=== PATIENT | female | born 1980 | race Caucasian/White ===

== ENCOUNTER 2018-02-15 05:46 | Day surgery (SDC) | payer OTHER ==
[2018-02-15] MEDS ORDERED: LR 1,000 ML IV ONE (06:54)
[2018-02-15] MEDS ORDERED: MIDAZOLAM 2 MG/2 ML VIAL IVP ONE (07:11)
--- NOTE | 2018-02-15 07:12 | PDANEPAE ---
ANE Past Medical History - Cardiovascular History Hx Hypertension: No Hx Arrhythmias: No Hx Chest Pain: No Hx Coronary Artery / Peripheral Vascular Disease: No Hx CHF / Valvular Disease: No Hx Palpitations: No - Pulmonary History Hx COPD: No Hx Asthma/Reactive Airway Disease: No Hx Recent Upper Respiratory Infection: No Hx Oxygen in Use at Home: No Hx Sleep Apnea: No Sleep Apnea Screening Result - Last Documented: Negative - Neurologic History Hx Cerebrovascular Accident: No Hx Seizures: No Hx Dementia: No - Endocrine History Hx Diabetes: No Obesity: no - Renal History Hx Renal Disorders: No - Liver History Hx Hepatic Disorders: No - Neurological & Psychiatric Hx Hx Neurological and Psychiatric Disorders: No - Cancer History Hx Cancer: No - Congenital Disorder History Hx Congenital Disorders: No - GI History Hx Gastrointestinal Disorders: No - Other Health History Other Health History: rash ? dairy. anemia. abnormal bleeding fibroids - Chronic Pain History Chronic Pain: No - Surgical History Prior Surgeries: none ANE Review of Systems Review of Systems: - Exercise capacity METS (RN): 5 METS ANE Patient History - Allergies Allergies/Adverse Reactions: No Known Allergies Allergy (Verified 02/15/18 06:38) - Home Medications Home medications: home medication list seen and reviewed Home Medications: Ascorbic Acid 02/02/18 [Last Taken 02/08/18] Cholecalciferol (Vitamin D3) 02/02/18 [Last Taken 02/08/18] Herbals/Supplements -Info Only 02/02/18 [Last Taken 02/08/18] Iron 02/02/18 [Last Taken 02/14/18] Lysine 02/02/18 [Last Taken 02/08/18] Vitamin B Complex 02/02/18 [Last Taken 02/08/18] - NPO status NPO Status: no food or drink >8 hours NPO Since - Liquids (Date): 02/15/18 NPO Since - Liquids (Time): 04:00 NPO Since - Solids (Date): 02/14/18 NPO Since - Solids (Time): 22:00 - Smoking Hx Smoking Status: Never smoked - Family Anes Hx Family Hx Anesthesia Complications: none ANE Labs/Vital Signs - Vital Signs Blood Pressure: 111/66 Heart Rate: 58 Respiratory Rate: 16 O2 Sat (%): 97 Height: 160.02 cm Weight: 58.967 kg ANE Physical Exam - Airway Neck exam: FROM Mallampati Score: Class 1 Mouth exam: normal dental/mouth exam - Pulmonary Pulmonary: no respiratory distress, no rales or rhonchi, clear to auscultation - Cardiovascular Cardiovascular: regular rate and rhythym, no murmur, rub, or gallop - ASA Status ASA Status: I ANE Anesthesia Plan Anesthesia Plan: GA w LMA
[2018-02-15] MEDS ORDERED: fentaNYL 100 MCG/2 ML INJ ONE (07:24)
[2018-02-15] MEDS ORDERED: DEXAMETHASONE 4 MG/ML VIAL ONE ×2 (07:24)
[2018-02-15] MEDS ORDERED: ONDANSETRON 4 MG/2 ML VIAL ONE (07:24)
[2018-02-15] MEDS ORDERED: KETOROLAC 30 MG/1 ML SDV ONE (07:24)
[2018-02-15] MEDS ORDERED: PROPOFOL 200 MG/20 ML VIAL ONE (07:24)
[2018-02-15] MEDS ORDERED: ONDANSETRON 4 MG/2 ML VIAL IVP PRN (07:29)
[2018-02-15] MEDS ORDERED: fentaNYL 100 MCG/2 ML INJ IVP PRN (07:29)
[2018-02-15] MEDS ORDERED: HYDROCODONE/APAP 5/325 TAB PO PRN (07:29)
[2018-02-15] MEDS ORDERED: ACETAMINOPHEN 500 MG TAB PO PRN (07:29)
[2018-02-15] MEDS ORDERED: PROMETHAZINE HCL 25 MG/ML INJ IVP PRN (07:29)
[2018-02-15] MEDS ORDERED: LR 500 ML IV PRN (07:29)
[2018-02-15] MEDS ORDERED: MEPERIDINE 25 MG/0.5 ML AMP IVP PRN (07:29)
[2018-02-15] MEDS ORDERED: NALOXONE HCL 0.4 MG/ML INJ IVP PRN (07:29)
--- NOTE | 2018-02-15 07:30 | PDHPUP ---
History & Physical Update H&P update statement: This history and physical update is based on an assessment of the patient which was completed after admission or registration (within 24 hours), but prior to the surgery/procedure. H&P update: H&P reviewed & patient examined, no change in patient's condition since H&P completed
--- NOTE | 2018-02-15 09:07 | POSTANESTH ---
Post Anesthetic Evaluation Cardiovascular Status: Normal, Stable, Similar to Pre-Op Cond Respiratory Status: Normal, Stable, Similar to Pre-op Cond. Level of Consciousness/Mental Status: Can Participate in Eval, Alert and Oriented Pain Control: Adequate, Prn Tx Ordered Nausea/Vomiting Control: Adequate, Prn Tx Ordered Complications Possibly Related to Anesthesia: None Noted
--- NOTE | 2018-02-15 10:03 | POSTOPPROG ---
Post Op Note Date of Operation: 02/15/18 Surgeon: Annalee Bautista Anesthesiologist: Chapo Lopez Anesthesia: LMA Pre-op Diagnosis: submucosal fibroid, DUB Post-op Diagnosis: same Indication: menorrhagia Procedure: H/s myomectomy, attempted and failed Novasure Findings: large post wall fibroid Inf/Abcess present in the surg proc area at time of surgery?: No EBL: Minimal Complications: none
[2018-02-15 10:22] VITALS: BP 114/68
--- NOTE | 2018-02-15 18:36 | GOP ---
[f rep st] OPERATIVE REPORT DATE OF OPERATION: 02/15/2018 SURGEON: Annalee Bautista MD ANESTHESIA: General LMA. ANESTHESIOLOGIST: David Saucedo MD. PREOPERATIVE DIAGNOSIS: 1. Menorrhagia. 2. Anemia. 3. Submucosal fibroid. POSTOPERATIVE DIAGNOSIS: 1. Menorrhagia. 2. Anemia. 3. Submucosal fibroid. PROCEDURE PERFORMED: Hysteroscopic polypectomy with failed NovaSure ablation device. FINDINGS: A 2 cm submucosal fibroid arising from the posterior uterine fundus. Several other polyp- like areas within the uterine cavity. DESCRIPTION OF PROCEDURE: With informed consent signed, the patient was taken to the operating room and placed under general anesthesia without complication, placed in dorsal lithotomy position, preppe d and draped in usual sterile fashion. Tenaculum placed on the anterior lip of the cervix. Cervix d ilated up to 7 mm. Hysteroscope placed using normal saline and findings as noted above. At some poi nt, it was difficult to maintain intrauterine pressure and there was quite a bit of bleeding from the fibroid, so the [employer] morcellator was placed into the uterine cavity and resecti on of this fibroid was done until it was about 90% resolved and removal of the other polyps done as w ell. At this point, it was decided to do a NovaSure ablation to obliterate the rest of the fibroid a nd to improve bleeding. However, there was moderate bleeding during the hysteroscopy and net fluid d eficit was 260 cc, so the hysteroscopy was removed and the NovaSure ablation device placed into the u terine cavity. Length was measured at 6.5, width was 4.6, and integrity test passed. However, the N ovaSure was activated. However, it defaulted out to vacuum malfunction, so this was re-tried several times and then the equipment switched out and the probe was switched out and again, integrity test p assed and 2 tenaculums were used for sealant and then vaginal gauze as well placed around the NovaSur e probe. Again, the NovaSure did not activate, so it was felt at this point it was unsafe to continue . She was hemostatic at the time, so the patient was awakened in the operating room, taken to recove ry room in stable condition. Tolerated procedure well. Ultimately, NovaSure was not able to be acti vated and 90% of the fibroid was removed. We will discuss with the patient next steps at postop [facility]. INDICATIONS FOR PROCEDURE: Patient is a 37-year-old who has had problematic bleeding for the last se veral years with a noted submucosal fibroid that was about 2 cm. She desires definitive treatment an d we discussed whether we should do an ultrasound for improvement of the bleeding and she has agreed as the submucosal fibroid is not able to be completely removed. COMPLICATIONS: None. /[id number]/MODL
== END 2018-02-15 10:02 | disposition home or self-care (01) ==
LOC: FSGY 05:46
PROVIDERS: ATTEND Obstetrics & Gynecology Gynecology
PROC: 0UB97ZZ Excision of Uterus, Via Natural or Artificial Opening (ICD-10-PCS; principal; 2018-02-15 07:15)
DX: D25.0 Submucous leiomyoma of uterus (principal); N92.4 Excessive bleeding in the premenopausal period; D64.9 Anemia, unspecified
CPT/HCPCS: 58145; 58353; C1782; J1100; J1885; J2250; J2405; J2704; J3010